=== PATIENT | female | born 1950 | race Two or more races ===

== ENCOUNTER 2018-06-13 09:00 | Emergency (ER) | payer OTHER, MEDICAID ==
[~2018-06-13] VITALS: Ht 152.4 cm; Wt 99.3 kg
--- NOTE | 2018-06-13 09:10 | NUR ---
AAOX3, C/O WEAKNESS X 2 DAYS AND LOW BACK PAIN NO TRAUMA, RR IS EVEN AND UNLABORED WITH NAD NOTED. SKIN IS WARM AND DRY. AWAITING MD FOR EVAL.
--- NOTE | 2018-06-13 10:40 | NUR ---
Patient is resting comfortably in bed with eyes closed. Easily aroused. VSS
[2018-06-13 11:01] LABS: BASOPHILS % (AUTO) 0.6 % (0.0-2.0); EOSINOPHILS % (AUTO) 0.5 % (0.0-6.0); HEMATOCRIT 34 % (33-45); LYMPHOCYTES # (AUTO) 1.1 /CMM (0.8-4.8); LYMPHOCYTES % (AUTO) 20.2 % (20.0-44.0); MEAN CORPUSCULAR HGB CONC 35 g/dl (31.0-36.0); MEAN CORPUSCULAR VOLUME 90 fL (82-100); MONOCYTES # (AUTO) 0.4 /CMM (0.1-1.30); MONOCYTES % (AUTO) 6.4 % (2.0-12.0); NEUTROPHILS # (AUTO) 4.1 /CMM (1.8-8.9); NEUTROPHILS % (AUTO) 72.3 % (43.0-81.0); PLATELET COUNT (AUTO) 236 /CMM (150-450); RED BLOOD CELL COUNT(AUTO) 3.81 MIL/uL (4.0-5.2); WHITE BLOOD COUNT (AUTO) 5.7 K/uL (4.3-11.0)
[2018-06-13 11:09] LABS: APPEARANCE,URINE Clear (CLEAR); BILIRUBIN,URINE Negative (NEGATIVE); BLOOD, URINE Negative Ery/uL (NEGATIVE); COLOR,URINE Yellow (YELLOW); KETONES,URINE Negative (NEGATIVE); LEUKOCYTE ESTERASE ,URINE Negative (NEGATIVE); NITRITE, URINE Negative (NEGATIVE); PH,URINE 8.5 (5.0-8.0); PROTEIN,URINE Negative (NEGATIVE); UGLUCOSE Negative (NEGATIVE); UROBILINOGEN,URINE 0.2 EU/dL (0.2)
[2018-06-13 11:10] LABS: CALCIUM, SERUM 9.2 mg/dL (8.5-10.1); CREATININE 0.5 mg/dL (0.6-1.3); POTASSIUM 3.7 mmol/L (3.5-5.1)
[2018-06-13] MEDS ORDERED: KETOROLAC TROMETHAMINE 15 MG/ML VIAL ONE (11:15)
[2018-06-13] MEDS: KETOROLAC TROMETHAMINE INJ 30 MG/ML VIAL IV ONE (11:18)
[2018-06-13] MEDS: IV NS 0.9% 500 ML BAG IV ONE (11:18)
[2018-06-13 11:28] LABS: ALBUMIN 3.5 g/dL (3.4-5.0); BILIRUBIN,DIRECT 0.1 mg/dL (0.0-0.2); BILIRUBIN,TOTAL 0.5 mg/dL (0.2-1.0); TOTAL PROTEIN, SERUM 7.6 g/dL (6.4-8.2)
[2018-06-13] MEDS ORDERED: IBUP-1955 PO (12:27)
[2018-06-13] MEDS ORDERED: AMLO5TAB9 PO (12:27)
[2018-06-13] MEDS ORDERED: CARV6.252 PO (12:27)
[2018-06-13] MEDS ORDERED: OLME1TAB54 PO (12:27)
--- NOTE | 2018-06-13 13:31 | NUR ---
IV removed. Catheter intact and site benign. Pressure and 4x4 applied to site. No bleeding noted.Patient discharged to home in stable condition. Written and verbal after care instructions given. Patient verbalizes understanding of instruction.
[2018-06-13 13:42] VITALS: BP 144/88
== END 2018-06-13 13:44 | disposition home or self-care (01) ==
LOC: ER 09:08
DX: R10.12 Left upper quadrant pain (principal); R10.32 Left lower quadrant pain; R53.1 Weakness; R53.83 Other fatigue; I10 Essential (primary) hypertension; Z98.890 Other specified postprocedural states; Z79.899 Other long term (current) drug therapy
CPT/HCPCS: 36415; 80048-TC; 80076-TC; 81000-TC; 83690-TC; 85025-TC; J1885; J7040

== ENCOUNTER 2018-07-19 01:29 | Emergency (ER) | payer OTHER, MEDICAID ==
[~2018-07-19] VITALS: Ht 152.4 cm; Wt 99.0 kg
[~2018-07-19 01:29] MED LIST: AMLO5TAB9 PO; CARV6.252 PO; IBUP-1955 PO; OLME1TAB54 PO
[2018-07-19] MEDS ORDERED: ONDANSETRON HCL/PF 4 MG/2 ML VIAL ONE (01:45)
--- NOTE | 2018-07-19 01:55 | NUR ---
PT BIB S. COMP OF "HAVING NAUSEA VOMIT SINCE 10PM" NO SOB NOTED. NO ACUTE DISTRESS AT THIS TIME. PT AOX4. AMBULATORY W.STEADY GAIT. AWAITING MD DE JESUS.
[2018-07-19] MEDS ORDERED: ONDANSETRON HCL/PF 4 MG/2 ML VIAL IM ONE (02:00)
[2018-07-19 02:36] VITALS: BP 148/88
== END 2018-07-19 02:37 | disposition home or self-care (01) ==
LOC: ER 01:31
DX: R11.0 Nausea (principal); I10 Essential (primary) hypertension; Z98.890 Other specified postprocedural states
CPT/HCPCS: 96372; 99283; A4606; J2405

== ENCOUNTER 2020-01-06 18:48 | Emergency (ER) | payer OTHER ==
[~2020-01-06] VITALS: Ht 149.9 cm; Wt 79.4 kg
[~2020-01-06 18:48] MED LIST changes: -OLME1TAB54 PO; +OLME1TAB86 PO
[2020-01-06 19:14] LABS: BASOPHILS % (AUTO) 0.4 % (0.0-2.0); EOSINOPHILS % (AUTO) 0.1 % (0.0-6.0); HEMATOCRIT 34 % (33-45); HEMOGLOBIN 11.8 g/dL (11.5-14.8); LYMPHOCYTES # (AUTO) 0.9 /CMM (0.8-4.8); LYMPHOCYTES % (AUTO) 8.4 % (20.0-44.0); MEAN CORPUSCULAR HGB CONC 34 g/dl (31.0-36.0); MEAN CORPUSCULAR VOLUME 91 fL (82-100); MONOCYTES # (AUTO) 0.8 /CMM (0.1-1.30); MONOCYTES % (AUTO) 7.5 % (2.0-12.0); NEUTROPHILS # (AUTO) 9.3 /CMM (1.8-8.9); NEUTROPHILS % (AUTO) 83.6 % (43.0-81.0); PLATELET COUNT (AUTO) 242 /CMM (150-450); RED BLOOD CELL COUNT(AUTO) 3.79 MIL/uL (4.0-5.2); WHITE BLOOD COUNT (AUTO) 11.1 K/uL (4.3-11.0)
[2020-01-06 19:23] LABS: CALCIUM, SERUM 8.8 mg/dL (8.5-10.1); CREATININE 0.8 mg/dL (0.6-1.3); POTASSIUM 3.5 mmol/L (3.5-5.1)
--- NOTE | 2020-01-06 19:25 | NUR ---
PT SENT FROM URGENT CARE. TO ER BED 7. AAOX4. NOT IN RESP DISTRESS, BRETHING EVEN AND UNLABORED. SENT FOR ELEVATED HR WHICH WAS REPORTED AT 122. UPON ASSESSMENT, PT IS NOTED WITH HR IN THE 90'S, VSS. DENIES OF ANY CHEST PAIN. PT VERBALIZED THAT SHE WAS IN THE URGENT CARE BECUSE SHE SLEPT IN AN AIRCONDITIONED ROOM AND HAD CHILLS. PT IS AFEBRILE. EKG WAS DONE. HOOKED ON MONITOR. MD AT BEDSIDE FOR EVAL. ORDERS RECEIVED NOTED AND CARRIED OUT. IV LINE OBTAINED ON R HAND 20G. BLOOD DRAWN AND GIVEN TO [employer] SAL[employer] REPRESENTATIVE AT BEDSIDE. WILL CONTINUE TO MONITOR
[2020-01-06 19:29] LABS: ALBUMIN 3.5 g/dL (3.4-5.0); BILIRUBIN,TOTAL 0.8 mg/dL (0.2-1.0); TOTAL PROTEIN, SERUM 7.7 g/dL (6.4-8.2)
--- NOTE | 2020-01-06 19:43 | NUR ---
KLAUDIA ([facility] [phone]
[2020-01-06 19:46] LABS: APPEARANCE,URINE Slightly Cloudy (CLEAR); BILIRUBIN,URINE Negative (NEGATIVE); BLOOD, URINE Small Ery/uL (NEGATIVE); COLOR,URINE Yellow (YELLOW); KETONES,URINE Negative (NEGATIVE); LEUKOCYTE ESTERASE ,URINE Trace (NEGATIVE); NITRITE, URINE Positive (NEGATIVE); PH,URINE 6.5 (5.0-8.0); PROTEIN,URINE Trace mg/dl (NEGATIVE); UGLUCOSE Negative (NEGATIVE)
[2020-01-06 20:02] LABS: BACTERIA,URINE Many /HPF (None Seen); SQUAMOUS EPITHELIAL CELL,UR Few /HPF (None Seen)
[2020-01-06] MEDS ORDERED: CEPHALEXIN MONOHYDRATE 500 MG CAPSULE PO ONE ×2 (20:28→20:30)
--- NOTE | 2020-01-06 20:38 | NUR ---
Patient discharged to home in stable condition. Written and verbal after care instructions given. Patient verbalizes understanding of instruction and RX. Pt ambulated with steady gait. vss.
--- NOTE | 2020-01-06 20:38 | NUR ---
IV removed. Catheter intact and site benign. Pressure and 4x4 applied to site. No bleeding noted.
[2020-01-06 20:41] VITALS: BP 118/69
== END 2020-01-06 20:41 | disposition home or self-care (01) ==
LOC: ER 18:54
DX: N39.0 Urinary tract infection, site not specified (principal); I10 Essential (primary) hypertension; E66.01 Morbid (severe) obesity due to excess calories; Z68.35 Body mass index [BMI] 35.0-35.9, adult; R94.31 Abnormal electrocardiogram [ECG] [EKG]
CPT/HCPCS: 36415; 71045-TC; 80053-TC; 81000-TC; 84443-TC; 85025-TC; 87086-TC; 87186-TC

== ENCOUNTER 2020-08-07 09:47 | Emergency (ER) | payer OTHER ==
[~2020-08-07] VITALS: Ht 154.9 cm; Wt 99.3 kg
[~2020-08-07 09:47] MED LIST changes: +AMLO-212 PO; -AMLO5TAB9 PO; -OLME1TAB86 PO; +OLME1TAB92 PO
[2020-08-07 09:52] VITALS: BP 134/76
[2020-08-07] MEDS ORDERED: AMLO10TA4 PO (10:00)
--- NOTE | 2020-08-07 10:12 | NUR ---
AT BEDSIDE FOR EVAL.
== END 2020-08-07 10:35 | disposition home or self-care (01) ==
LOC: ER 09:50
DX: I10 Essential (primary) hypertension (principal); Z98.890 Other specified postprocedural states; Z79.899 Other long term (current) drug therapy

== ENCOUNTER 2023-01-30 16:39 | Emergency (ER) | payer MEDICARE, OTHER ==
[~2023-01-30] VITALS: Ht 154.9 cm; Wt 95.3 kg
[~2023-01-30 16:39] MED LIST changes: -AMLO-212 PO; +AMLO10TA4 PO
[2023-01-30 17:36] LABS: BASOPHILS % (AUTO) 0.5 % (0.0-2.0); EOSINOPHILS % (AUTO) 1.1 % (0.0-6.0); HEMATOCRIT 35 % (33-45); HEMOGLOBIN 12.1 g/dL (11.5-14.8); LYMPHOCYTES % (AUTO) 20.6 % (20.0-44.0); MEAN CORPUSCULAR HEMOGLOBIN 31 PG (26.0-33.0); MEAN CORPUSCULAR HGB CONC 34 g/dl (31.0-36.0); MEAN CORPUSCULAR VOLUME 90 fL (82-100); MONOCYTES % (AUTO) 9.3 % (2.0-12.0); NEUTROPHILS # (AUTO) 4.9 K/uL (1.8-8.9); NEUTROPHILS % (AUTO) 68.5 % (43.0-81.0); PLATELET COUNT (AUTO) 297 K/uL (150-450); RED BLOOD CELL COUNT(AUTO) 3.89 MIL/uL (4.0-5.2); RED CELL DISTRIBUTION WIDTH 13.7 % (11.5-15.0); WHITE BLOOD COUNT (AUTO) 7.1 K/uL (4.3-11.0)
[2023-01-30 17:37] LABS: EOSINOPHILS # (AUTO) 0.1 K/uL (0.0-0.7); LYMPHOCYTES # (AUTO) 1.5 K/uL (0.8-4.8); MONOCYTES # (AUTO) 0.7 K/uL (0.1-1.30)
[2023-01-30 17:48] LABS: CALCIUM, SERUM 9.1 mg/dL (8.5-10.1); CARBON DIOXIDE 26 mmol/L (21-32); CHLORIDE 104 mmol/L (98-107); CREATININE 0.7 mg/dL (0.6-1.3); GLUCOSE 125 mg/dL (74-106); POTASSIUM 3.4 mmol/L (3.5-5.1); SODIUM SERUM 140 mmol/L (136-145); UREA NITROGEN, BLOOD 15 mg/dL (7-18)
[2023-01-30] MEDS ORDERED: MECLIZINE HCL 25 MG TABLET ONE (18:03)
[2023-01-30] MEDS: MECLIZINE HCL 12.5 MG TABLET PO ONE (18:06)
[2023-01-30] MEDS ORDERED: IV NS 0.9% 250 ML IV ONE (18:17)
[2023-01-30] MEDS ORDERED: IOHEXOL-350 100 ML VIAL IV ONE (18:17)
[2023-01-30] MEDS ORDERED: MECL-159 PO (21:39)
[2023-01-30 21:58] VITALS: BP 148/68; TEMP 98.1; O2SAT 99
== END 2023-01-30 21:58 | disposition home or self-care (01) ==
LOC: ER 16:47
DX: R42 Dizziness and giddiness (principal); I10 Essential (primary) hypertension; Z79.899 Other long term (current) drug therapy
CPT/HCPCS: 99285; 70498; 71045; 93005; 70496; 85025; 80048; 83735; 36415; 84484; J8597; J7050; Q9967